=== PATIENT | male | born 1995 | race Caucasian/White ===

== ENCOUNTER 2024-11-11 15:26 | Outpatient (CLI) | payer BC, SELFPAY ==
--- OUTSIDE RECORDS SUMMARY | 2024-11-11 15:52 | XMS_ITS | Referral Summary ---
Author Organization [address] [address] Care Team Providers Care Suction Plate Carrier Cleaner Name Role Phone Unknown, Notinfile Primary Care Provider Unavail able Encounters Date Type Department Care Team Description 11/11/2024 Telephone [facility] Convenient Care at [address] [address] No Mishra NP 11/08/2024 Results Follow-Up [facility] Medical [facility] Care at [address] [address] Kelsi Valentino NP XR Foot Right 3+ Vw 11/08/2024 11:00 AM CDT Ancillary Procedure [facility] Medical [facility] Imaging at [address] [address] Acute foot pain, right 11/06/2024 9:30 AM CDT Office Visit [facility] at [address] [address] No Mishra NP Acute foot pain, right (Primary Dx) from Last 3 Months Allergies No known active allergies Medications metFORMIN XR (GLUCOPHAGE XR) 500 mg 24 hr tablet Take 1 tablet every day by oral route for 90 days. Active tirzepatide (Mounjaro) 2.5 mg/0.5 mL pen injector injection Inject 2.5 mg every week by subcutaneous route. 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 Gender Identity Not on file Sexual Orientation Not on file Last Filed Vital Signs Vital Sign Reading Time Taken Comments Blood Pressure 140/90 11/06/2024 9:29 AM CDT Pulse 80 11/06/2024 9:29 AM CDT Temperature 36.7 C (98 F) 11/06/2024 9:29 AM CDT Respiratory Rate 20 11/06/2024 9:29 AM CDT Oxygen Saturation 99% 11/06/2024 9:29 AM CDT Inhaled Oxygen Concentration - - Weight 147.8 kg (325 lb 14.4 oz) 11/06/2024 9:29 AM CDT Height - - Body Mass Index - - Plan of Treatment Not on file Procedures Procedure Name Priority Date/Time Associated Diagnosis Comments XR FOOT RIGHT 3 OR MORE VIEWS Schedule SHEREE, Read SHEREE (Appt Today, Awaiting Results) 11/08/2024 10:27 AM CDT Acute foot pain, right from Last 3 Months Results * XR Foot Right 3+ Vw (11/08/2024 10:27 AM CDT) Anatomical Region Laterality Modality Lower Extremities, Foot Right Digital Radiography 11/08/2024 3:37 PM CDT Narrative 11/08/2024 3:38 PM CDT EXAM DESCRIPTION: XR FOOT RIGHT 3 OR MORE VIEWS REASON FOR STUDY: pain Pt complains of right pedal foot pain for a week. No known injury. No prior surgery to the foot. TECHNIQUE: 3 radiographic view(s) of the right foot . COMPARISON: None FINDINGS: There is no definite evidence of acute displaced fracture or dislocation involving the right foot. The visualized soft tissues are grossly unremarkable. IMPRESSION: No definite evidence of acute displaced fracture or dislocation involving the right foot. If clinical symptoms persist, then follow-up radiographs in 7-10 days is recommended. THIS IS AN ELECTRONICALLY VERIFIED FINAL REPORT 11/08/2024 3:38 PM - Electronically signed by Gabbi Taylor D.O. PS T: Report ID: [id number] Reading Location: [id number] Procedure Note Gabbi Taylor, DO - 11/08/2024 EXAM DESCRIPTION: XR FOOT RIGHT 3 OR MORE VIEWS REASON FOR STUDY: pain Pt complains of right pedal foot pain for a week. No known injury. Noprior surgery to the foot. TECHNIQUE: 3 radiographic view(s) of the right foot . COMPARISON: None FINDINGS: There is no definite evidence of acute displaced fracture or dislocation involving the right foot. The visualized soft tissues aregrossly unremarkable. IMPRESSION: No definite evidence of acute displaced fracture or dislocation involvingthe right foot. If clinical symptoms persist, then follow-up radiographs in7-10 days is recommended. THIS IS AN ELECTRONICALLY VERIFIED FINAL REPORT 11/08/2024 3:38 PM - Electronically signed by Gabbi Taylor D.O. PS T: Report ID: [id number] Reading Location: [id number] No Mishra AUTOMOBILE SALESMAN IMG XR PROCEDURES Final Result from Last 3 Months Insurance [facility] CHOICE OOS Care Teams Suction Plate Carrier Cleaner Relationship Specialty Start Date End Date Unknown, Notinfile PCP - General 11/05/24
--- OUTSIDE RECORDS SUMMARY | 2024-11-11 15:52 | XMS_ITS | Encounter Summary ---
Author Organization [facility] Healthcare Address [address] [place] [address] Care Team Providers Care Compound Finisher Name Role Phone Unknown, Notinfile Primary Care Provider Unavail able Encounter Details Date Type Department Care Team (Late st Contact Info) Description 11/08/2024 Results Follow-Up [facility] Convenient Care at [address] [address] Kelsi Valentino NP [address] [place] [address] [address] [place] [address] XR Foot Right 3+ Vw Social History Tobacco Use Types Packs/Day Years Used Date Smoking Tobacco: Never Assessed Sex and Gender Information Value Date Recorded Sex Assigned at Not on file 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
--- OUTSIDE RECORDS SUMMARY | 2024-11-11 15:52 | XMS_ITS | Encounter Summary ---
Author Organization [facility] Healthcare Address [address] [place] [address] Care Team Providers Care Manager Hvac Name Role Phone Unknown, Notinfile Primary Care Provider Unavail able Encounter Details Date Type Department Care Team (Late st Contact Info) Description 11/11/[address] 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 Faxed records per pts request. documented in this encounter Plan of Treatment Not on file documented as of this encounter Visit Diagnoses Not on filedocumented in this encounter Care Teams Manager Hvac Relationship Specialty Start Date End Date Unknown, Hannah PCP - General 11/05/24 documented as of this encounter
--- OUTSIDE RECORDS SUMMARY | 2024-11-11 15:52 | XMS_ITS | Clinical Summary ---
Author Organization [address] Address [address] [place] [address] Care Team Providers Care Rn Birthing Name Role Phone Unknown, Notinfile Primary Care Provider Unavail able Allergies No known active allergies Medications metFORMIN [...] mouth daily for 15 days 15 tablet 5 11/22/19 25 Active Active Problems No known active problems Encounters Date Type Department Care Team Description 11/11/2024 Telephone [facility] Medical Group Convenient Care at [address] [address] No Mishra NP 11/08/2024 11:00 AM CDT Ancillary Procedure [facility] Medical Group Imaging at [address] [address] Acute foot pain, right 11/08/2024 Results Follow-Up [facility] Convenient Care at [address] [address] Kelsi Valentino NP XR Foot Right 3+ Vw 11/06/2024 9:30 AM CDT Office Visit [facility] Convenient Care at [address] [address] No Mishra NP Acute foot pain, right (Primary Dx) from Last 3 Months Social History Tobacco Use Types Packs/Day Years Used Date Smoking Tobacco: Never Assessed Sex and Gender Information Value Date Recorded Sex Assigned at Not on file 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 Gender Identity Not on file Sexual Orientation [...] Mass Index - - Plan of Treatment Health Maintenance Due Date Last Done Comments Depression Screening 1994 Hepatitis C Screening 1994 Varicella Vaccines (1 of 2 - 13+ 2-dose series) 08/03/2007 Hepatitis B Screening 2012 Regular Well Visit/Exam 18-64 2012 Influenza Vaccine (Season Ended) 2025 DTaP/Tdap/Td Vaccine (3 - Td or Tdap) 01/28/2032 01/27/2022, 12/15/2016 HPV Vaccines Aged Out No longer eligi ble based on patient's age to complete this topic Pneumococcal vaccine <65 Aged Out No longer eligible based on patient's age to complete this topic Procedures Procedure Name Priority Date/Time Associated Diagnosis [...] - Electronically signed by Gabbi Taylor D.O. Gabbi Taylor D.O. PS T: Report ID: [id number] Reading Location: [id number] Procedure Note Gabbi Taylor, - 11/08/2024 EXAM DESCRIPTION: XR FOOT RIGHT [...] - Electronically signed by Gabbi Taylor D.O. Gabbi Taylor D.O. PS T: Report ID: [id number] Reading Location: [id number] No Mishra AUTOMOTIVE GLASS MECHANIC IMG XR PROCEDURES Final Result from Last 3 Months Insurance [employer] CHO[employer] OOS Care Teams Rn Birthing Relationship Specialty Start Date End Date Unknown, Notinfile PCP - General 11/05/24
== END 2024-11-11 15:27 | disposition home or self-care (01) ==
LOC: ANHBWCIMG 15:27
PROVIDERS: PCP Nurse Practitioner Adult Health; Visit Provider Nurse Practitioner Adult Health
DX: M79.671 Pain in right foot (principal)
CPT/HCPCS: 73630

== ENCOUNTER 2024-11-12 09:19 | Outpatient (CLI) | payer BC, SELFPAY ==
--- OUTSIDE RECORDS SUMMARY | 2024-11-12 09:24 | XMS_ITS | Encounter Summary ---
Author Organization [facility] Healthcare Address [address] [place] [address] Care Team Providers Care Stock Checker Name Role Phone Unknown, Notinfile Primary Care Provider Unavail able Encounter Details Date Type Department Care Team (Late st Contact Info) Description 11/11/2024 Telephone [facility] Medical Group Convenient Care at [address] [address] No Mishra ANTIQUE DEALER [address] [place] [address] [address] [place] [address] Social History Tobacco Use Types Packs/Day Years Used Date Smoking Tobacco: Never Assessed Sex and Gender Information Value Date Recorded Sex Assigned at Not on file 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 Faxed records per pts request. documented in this encounter Plan of Treatment Not on file documented as of this encounter Visit Diagnoses Not on filedocumented in this encounter Care Teams Stock Checker Relationship Specialty Start Date End Date Unknown, Hannah PCP - General 11/05/24 documented as of this encounter
--- OUTSIDE RECORDS SUMMARY | 2024-11-12 09:24 | XMS_ITS | Referral Summary ---
Author Organization [address] [address] Care Team Providers Care Document Restorer Name Role Phone Unknown, Notinfile Primary Care Provider Unavail able Encounters Date Type Department Care Team Description 11/11/2024 Telephone [facility] Convenient Care at [address] [address] No Mishra NP 11/08/2024 Results Follow-Up [facility] Medical [facility] Convenient Care at [address] [address] Kelsi Valentino NP XR Foot Right 3+ Vw 11/08/2024 11:00 AM CDT Ancillary Procedure [facility] Medical [facility] Imaging at [address] [address] Acute foot pain, right 11/06/2024 9:30 AM CDT Office Visit [facility] Convenient Care at [address] [address] No Mishra NP Acute foot [...] on file Legal 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 PS T: Report ID: [id number] Reading Location: [id number] Procedure Note Gabbi Taylor, DO - 11/08/2024 [...] Gabbi Taylor D.O. PS T: Report ID: [id number] Reading Location: [id number] No Mishra SLIP COVER CUTTER IMG XR PROCEDURES Final Result from Last 3 Months Insurance [facility] CHOICE OOS Care Teams Document Restorer Relationship Specialty Start Date End Date Unknown, Notinfile PCP - General 11/05/24
--- OUTSIDE RECORDS SUMMARY | 2024-11-12 09:24 | XMS_ITS | Clinical Summary ---
Author Organization [address] Address [address] [place] [address] Care Team Providers Care Telephone Recorder Name Role Phone Unknown, Notinfile Primary Care [...] Type Department Care Team Description 11/11/2024 Telephone [facility] Medical Group Convenient Care at [address] [address] No Mishra NP 11/08/2024 11:00 AM CDT Ancillary Procedure [facility] Medical Group Imaging at [address] [address] Acute foot pain, right 11/08/2024 Results Follow-Up [facility] Medical Group Convenient Care at [address] [address] Kelsi Valentino NP XR Foot Right 3+ Vw 11/06/2024 9:30 AM CDT Office Visit [facility] Convenient Care at [address] [address] No Mishra NP Acute foot pain, right (Primary Dx) from Last 3 Months Social History Tobacco Use Types Packs/Day Years Used Date Smoking Tobacco: Never Assessed Sex and Gender Information Value Date Recorded Sex Assigned at Not on file Legal Sex Male 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 PS T: Report ID: [id number] Reading Location: [id number] Procedure Note Gabbi Taylor, - 11/08/2024 EXAM [...] Gabbi Taylor D.O. PS T: Report ID: [id number] Reading Location: [id number] No Mishra RN ENTEROSTOMAL IMG XR PROCEDURES Final Result from Last 3 Months Insurance [employer] CHO[employer] OOS Care Teams Telephone Recorder Relationship Specialty Start Date End Date Unknown, Notinfile PCP - General 11/05/24
--- OUTSIDE RECORDS SUMMARY | 2024-11-12 09:24 | XMS_ITS | Encounter Summary ---
Author Organization [facility] Address [address] [place] [address] Care Team Providers Care Technical Analyst Name Role Phone Unknown, Notinfile Primary Care Provider Unavail able Encounter Details Date Type Department Care Team (Late st Contact Info) Description 11/08/2024 Results Follow-Up [facility] Convenient Care at [address] [address] Kelsi Valentino NP [address] [place] [address] [address] [place] [address] XR Foot Right 3+ Vw Social History Tobacco Use Types Packs/Day Years Used Date Smoking Tobacco: Never Assessed Sex and Gender Information Value Date Recorded Sex Assigned at Not on file Legal 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
[2024-11-12 09:39] LABS: Hematocrit 46.8 % (42.0-52.0); Hemoglobin 15.2 g/dL (14.0-18.0); Mean Corpuscular HGB Conc 32.5 g/dl (32-36); Mean Corpuscular Hemoglobin 28.4 pg (26-34); Mean Corpuscular Volume 87.5 fl (80-100); Mean Platelet Volume 11.9 fl (7.4-10.4); Platelet Count Result 169 k/mm3 (150-375); Red Blood Count 5.35 M/mm3 (4.6-6.20); Red Cell Distribution Width 12.9 % (11.5-14.5); White Blood Count 9.2 K/mm3 (4.5-10.0)
[2024-11-12 09:54] LABS: Alanine Aminotransferase 68 U/L (6-50); Albumin Level 4.5 g/dL (3.5-5.1); Alkaline Phosphatase 80 U/L (38-126); Anion Gap 7 mmol/L (4-12); Aspartate Amino Transferase 41 U/L (17-59); Bilirubin,Total 0.4 mg/dL (0.2-1.3); Blood Urea Nitrogen 18 mg/dL (9-20); Calcium 9.4 mg/dL (8.4-10.2); Carbon Dioxide 28 mmol/L (22-30); Chloride 104 mmol/L (98-107); Cholesterol 203 mg/dL (0-200); Estimated Glomerular Filt Rate > 60; Glucose 115 mg/dL (65-110); HDL Direct 46 mg/dL; Potassium 4.5 mmol/L (3.4-5.0); Sodium 139 mmol/L (137-145); Total Protein 8.2 g/dL (6.3-8.2); Triglycerides 96 mg/dL (<150)
[2024-11-12 10:06] LABS: Hemoglobin A1C 5.6 % (<5.7)
[2024-11-12 10:09] LABS: LDL Cholesterol Direct 119 mg/dL
== END 2024-11-12 09:20 | disposition home or self-care (01) ==
PROVIDERS: PCP Nurse Practitioner Adult Health; Visit Provider Nurse Practitioner Adult Health
DX: Z00.00 Encounter for general adult medical examination without abnormal findings (principal); M10.9 Gout, unspecified
CPT/HCPCS: 36415; 80053; 80061; 83036; 84443; 84550; 85027

== ENCOUNTER 2025-02-16 13:14 | Outpatient (CLI) | payer BC, SELFPAY ==
--- OUTSIDE RECORDS SUMMARY | 2025-02-16 13:26 | XMS_ITS | Clinical Summary ---
Author Organization [facility] Address [address] [place] [address] Care Team Providers Care Billet Heater Operator Name Role Phone Unavailable Primary Care Provider Unavailabl e Social History Tobacco Use Types Packs/Day Years Used Date Smoking Tobacco: Never Assessed Sex and Gender Information Value Date Recorded Sex Assigned at Not on file Legal Sex Male 7:04 PM CDT Gender Identity Not on file Sexual Orientation Not on file Plan of Treatment Health Maintenance Due Date Last Done Comments Annual Physical 1997 Hepatitis C 2012 DTaP, Tdap and Td Vaccines ( 1 - Tdap) 2013 Hepatitis B Vaccines (1 of 3 - 19+ 3-dose series) 2013 HPV Vaccines (1 - 3-dose SCD M series) 2021 COVID-19 Vaccine ( - 2023-2 5 season) 2025 Meningococcal B Vaccine Aged Out No l onger eligible based on patient's age to complete this topic Meningococcal Vaccine Aged Out No luis fernando mari eligible based on patient's age to complete this topic Pneumococcal Vaccine: Pediat rics (0 to 5 Years) and At-Risk Patients (6 to 49 Years) Aged Out No longer eligible b ased on patient's age to complete this topic RSV Immunizations Under 20 Months Aged Out No longer eligible based on patient's age to complete this topic
--- OUTSIDE RECORDS SUMMARY | 2025-02-16 13:26 | XMS_ITS | Clinical Summary ---
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 Gender Identity Not on file Sexual Orientation [...] Screening 2012 Regular Well Visit/Exam 18-64 2012 HPV Vaccines (1 - 3-dose SCD M series) 2021 Influenza Vaccine (#1) 2025 DTaP/Tdap/Td Vaccine (3 - Td or Tdap) 01/28/2032 01/27/2022, 12/15/2016 Pneumococcal vaccine <65 Aged Out No longer eligible based on patient's age to complete this topic Insurance [facility] CHOICE OOS Member Subscriber Plan / Payer (Ef fective 2024-Present) Name:Juan Farooq Relation to Subscriber:Self Name:Juan Farooq Payer ID:[id number] (NAIC) Type:MANUEL LONG Address: [facility] [id number] [id number] Care Teams Valet Manager Relationship Specialty Start Date End Date Unknown, Notinfile PCP - General 11/05/24
[2025-02-16 18:45] LABS: Uric Acid 8.0 mg/dL (3.5-8.5)
== END 2025-02-16 13:15 | disposition home or self-care (01) ==
LOC: ANHBWCLAB 13:15
PROVIDERS: PCP Nurse Practitioner Adult Health; Visit Provider Nurse Practitioner Adult Health
DX: M10.9 Gout, unspecified (principal)
CPT/HCPCS: 36415; 84550